=== PATIENT | female | born 1985 | race Caucasian/White ===

== ENCOUNTER 2017-03-30 12:03 | Emergency (ER) | payer OTHER ==
[2017-03-30 12:11] VITALS: BP 107/77
== END 2017-03-30 15:01 | disposition home or self-care (01) ==
LOC: ED 12:03
DX: B34.9 Viral infection, unspecified (principal)

== ENCOUNTER 2018-01-11 09:40 | Emergency (ER) | payer OTHER ==
[2018-01-11 09:44] VITALS: Ht 154.9 cm
[2018-01-11 12:29] VITALS: BP 119/87
== END 2018-01-11 12:29 | disposition home or self-care (01) ==
LOC: ED 09:40
DX: M79.675 Pain in left toe(s) (principal); R20.2 Paresthesia of skin; Z98.890 Other specified postprocedural states
CPT/HCPCS: Q0092